=== PATIENT | male | born 1970 | race Caucasian/White ===

== ENCOUNTER → 2017-03-01 | Outpatient (CLI) | payer OTHER ==
[~2017-03-01] MED LIST: CELEBREX100 MG PO; CLINDAMYCIN HC300 MG PO; SKELAXIN800 MG PO
== END | disposition home or self-care (01) ==
LOC: LAB 08:30
DX: C73 Malignant neoplasm of thyroid gland (principal); E89.0 Postprocedural hypothyroidism

== ENCOUNTER 2017-03-15 07:30 | Outpatient (CLI) | payer OTHER | END 2017-03-15 17:00 | disposition home or self-care (01) | LOC: MRI 07:30 | DX: R10.13 Epigastric pain (principal) | CPT/HCPCS: 74183 ==

== ENCOUNTER 2017-04-21 08:06 | Outpatient (CLI) | payer OTHER | END 2017-04-21 08:21 | disposition home or self-care (01) | LOC: LAB 08:06 | DX: I10 Essential (primary) hypertension (principal); M54.5 Low back pain; E03.8 Other specified hypothyroidism; C73 Malignant neoplasm of thyroid gland ==

== ENCOUNTER 2017-04-25 14:31 | Outpatient (CLI) | payer OTHER | END 2017-04-25 14:41 | disposition home or self-care (01) | LOC: SONOGRAMA 14:31 | DX: C73 Malignant neoplasm of thyroid gland (principal); E03.9 Hypothyroidism, unspecified; I10 Essential (primary) hypertension; M54.5 Low back pain ==

== ENCOUNTER → 2017-06-12 | Outpatient (CLI) | payer OTHER | END | disposition home or self-care (01) | LOC: MRI 11:20 | DX: M54.5 Low back pain (principal); E03.8 Other specified hypothyroidism; I10 Essential (primary) hypertension; C73 Malignant neoplasm of thyroid gland | CPT/HCPCS: 72141 ==

== ENCOUNTER → 2017-06-12 | Outpatient (CLI) | payer OTHER | END | disposition home or self-care (01) | LOC: TOM 11:11 | DX: I10 Essential (primary) hypertension (principal); M54.5 Low back pain; E03.8 Other specified hypothyroidism; C73 Malignant neoplasm of thyroid gland ==

== ENCOUNTER 2017-07-07 09:34 | Outpatient (CLI) | payer OTHER | END 2017-07-07 09:35 | disposition home or self-care (01) | LOC: LAB 09:34 | DX: N39.0 Urinary tract infection, site not specified (principal) ==

== ENCOUNTER → 2017-08-04 | Outpatient (CLI) | payer OTHER | END | disposition home or self-care (01) | LOC: TOM 07:15 | DX: R10.32 Left lower quadrant pain (principal) ==

== ENCOUNTER → 2017-09-11 07:32 | Outpatient (CLI) | payer OTHER | END | disposition home or self-care (01) | LOC: LAB 07:32 | DX: R97.21 Rising PSA following treatment for malignant neoplasm of prostate (principal); B39.4 Histoplasmosis capsulati, unspecified; A31.0 Pulmonary mycobacterial infection; I73.9 Peripheral vascular disease, unspecified ==

== ENCOUNTER 2017-12-12 07:31 | Outpatient (CLI) | payer OTHER | END 2017-12-12 07:44 | disposition home or self-care (01) | LOC: LAB 07:31 | DX: C73 Malignant neoplasm of thyroid gland (principal); E89.0 Postprocedural hypothyroidism ==

== ENCOUNTER 2017-12-15 14:28 | Outpatient (CLI) | payer OTHER | END 2017-12-15 15:35 | disposition home or self-care (01) | LOC: NUCLEAR 14:28 | DX: C73 Malignant neoplasm of thyroid gland (principal) | CPT/HCPCS: 78018; A9528; 78020 ==

== ENCOUNTER 2018-02-01 10:24 | Emergency (ER) | payer OTHER ==
[~2018-02-01] VITALS: Ht 182.9 cm; Wt 95.3 kg
[2018-02-01] MEDS ORDERED: ALTACE10 MG PO (10:44)
[2018-02-01] MEDS ORDERED: LEVO-T88 MCG PO (10:44)
== END 2018-02-01 13:08 | disposition home or self-care (01) ==
LOC: ER 10:24
DX: S61.223A Laceration with foreign body of left middle finger without damage to nail, initial encounter (principal); Z77.21 Contact with and (suspected) exposure to potentially hazardous body fluids; W46.0XXA Contact with hypodermic needle, initial encounter; Y93.89 Activity, other specified; Y92.69 Other specified industrial and construction area as the place of occurrence of the external cause; Y99.8 Other external cause status

== ENCOUNTER 2018-06-04 15:00 | Outpatient (CLI) | payer OTHER ==
[~2018-06-04 15:00] MED LIST changes: +ALTACE10 MG PO; +LEVO-T88 MCG PO
== END 2018-06-04 15:19 | disposition home or self-care (01) ==
LOC: SONOGRAMA 15:00
DX: R22.1 Localized swelling, mass and lump, neck (principal)

== ENCOUNTER 2018-08-01 08:21 | Outpatient (CLI) | payer OTHER | END 2018-08-01 11:45 | disposition home or self-care (01) | LOC: LAB 08:21 | DX: C73 Malignant neoplasm of thyroid gland (principal); Z11.3 Encounter for screening for infections with a predominantly sexual mode of transmission ==

== ENCOUNTER 2018-08-13 08:27 | Outpatient (CLI) | payer OTHER | END 2018-08-13 08:31 | disposition home or self-care (01) | LOC: LAB 08:27 | DX: E03.8 Other specified hypothyroidism (principal); I10 Essential (primary) hypertension; M54.5 Low back pain; C73 Malignant neoplasm of thyroid gland ==

== ENCOUNTER → 2018-08-22 | Outpatient (CLI) | payer OTHER | END | disposition home or self-care (01) | LOC: NUCLEAR 12-18 13:00 → TOM 13:52 | DX: M54.5 Low back pain (principal); E03.8 Other specified hypothyroidism; C73 Malignant neoplasm of thyroid gland; I10 Essential (primary) hypertension ==

== ENCOUNTER 2018-12-10 07:10 | Outpatient (CLI) | payer OTHER | END 2018-12-10 07:17 | disposition home or self-care (01) | LOC: LAB 07:10 | DX: C73 Malignant neoplasm of thyroid gland (principal); E89.0 Postprocedural hypothyroidism; E03.8 Other specified hypothyroidism ==

== ENCOUNTER 2018-12-10 14:17 | Outpatient (CLI) | payer OTHER | END 2018-12-10 14:19 | disposition home or self-care (01) | LOC: SONOGRAMA 14:17 | DX: C73 Malignant neoplasm of thyroid gland (principal) ==

== ENCOUNTER → 2019-01-28 15:34 | Outpatient (CLI) | payer OTHER | END | disposition home or self-care (01) | LOC: LAB 15:34 | DX: J20.0 Acute bronchitis due to Mycoplasma pneumoniae (principal); J11.1 Influenza due to unidentified influenza virus with other respiratory manifestations ==

== ENCOUNTER → 2019-04-29 11:43 | Outpatient (CLI) | payer OTHER | END | disposition home or self-care (01) | LOC: LAB 11:43 | DX: J11.1 Influenza due to unidentified influenza virus with other respiratory manifestations (principal); R05 Cough; J06.9 Acute upper respiratory infection, unspecified ==

== ENCOUNTER 2019-06-18 08:18 | Outpatient (CLI) | payer OTHER | END 2019-06-18 08:24 | disposition home or self-care (01) | LOC: LAB 08:18 | DX: D64.89 Other specified anemias (principal); E11.9 Type 2 diabetes mellitus without complications; E78.2 Mixed hyperlipidemia; I10 Essential (primary) hypertension; E03.8 Other specified hypothyroidism ==

== ENCOUNTER 2019-12-09 09:23 | Outpatient (CLI) | payer OTHER | END 2019-12-09 09:28 | disposition home or self-care (01) | LOC: LAB 09:23 | PROVIDERS: ATTEND Internal Medicine Sports Medicine | DX: C73 Malignant neoplasm of thyroid gland (principal); E89.0 Postprocedural hypothyroidism ==

== ENCOUNTER 2019-12-17 08:00 | Outpatient (CLI) | payer OTHER | END 2019-12-17 15:00 | disposition home or self-care (01) | LOC: PPH VACUNA 08:00 | DX: Z23 Encounter for immunization (principal) ==

== ENCOUNTER → 2019-12-17 08:24 | Outpatient (CLI) | payer OTHER | END | disposition home or self-care (01) | LOC: SONOGRAMA 12-16 14:40 | PROVIDERS: ATTEND Internal Medicine Sports Medicine | DX: C73 Malignant neoplasm of thyroid gland (principal) ==

== ENCOUNTER 2020-03-10 15:52 | Outpatient (CLI) | payer OTHER | END 2020-03-10 18:00 | disposition home or self-care (01) | LOC: PPH VACUNA 15:52 | DX: Z23 Encounter for immunization (principal) ==

== ENCOUNTER → 2020-11-05 08:50 | Outpatient (CLI) | payer OTHER | END | disposition home or self-care (01) | LOC: LAB 08:50 | PROVIDERS: ATTEND Emergency Medicine Pediatric Emergency Medicine | DX: I10 Essential (primary) hypertension (principal); M54.5 Low back pain; E03.8 Other specified hypothyroidism; C73 Malignant neoplasm of thyroid gland; Z12.11 Encounter for screening for malignant neoplasm of colon ==

== ENCOUNTER 2020-12-23 08:00 | Outpatient (CLI) | payer OTHER | END 2020-12-23 08:30 | disposition home or self-care (01) | LOC: PPH VACUNA 08:00 | PROVIDERS: ATTEND Emergency Medicine Pediatric Emergency Medicine | DX: Z23 Encounter for immunization (principal) ==

== ENCOUNTER 2020-12-29 08:00 | Outpatient (CLI) | payer OTHER | END 2020-12-29 08:30 | disposition home or self-care (01) | LOC: PPH VACUNA 08:00 | PROVIDERS: ATTEND Emergency Medicine Pediatric Emergency Medicine | DX: Z23 Encounter for immunization (principal) ==

== ENCOUNTER 2021-01-30 12:06 | Outpatient (CLI) | payer OTHER | END 2021-01-30 12:25 | disposition home or self-care (01) | LOC: LAB 12:06 | PROVIDERS: ATTEND Emergency Medicine Pediatric Emergency Medicine | DX: Z03.818 Encounter for observation for suspected exposure to other biological agents ruled out (principal) ==

== ENCOUNTER 2021-03-24 15:35 | Outpatient (CLI) | payer OTHER | END 2021-03-24 15:38 | disposition home or self-care (01) | LOC: LAB 15:35 | PROVIDERS: ATTEND Preventive Medicine Occupational Medicine | DX: U07.1 COVID-19 (principal) ==

== ENCOUNTER 2021-11-24 08:40 | Outpatient (CLI) | payer OTHER | END 2021-11-24 08:45 | disposition home or self-care (01) | LOC: PPH VACUNA 08:40 | PROVIDERS: ATTEND Emergency Medicine Pediatric Emergency Medicine | DX: Z23 Encounter for immunization (principal) ==

== ENCOUNTER 2022-10-27 11:05 | Outpatient (CLI) | payer OTHER | END 2022-10-27 11:09 | disposition home or self-care (01) | LOC: SONOGRAMA 11:05 | PROVIDERS: ATTEND Internal Medicine Sports Medicine | DX: C73 Malignant neoplasm of thyroid gland (principal); E89.0 Postprocedural hypothyroidism ==

== ENCOUNTER 2024-07-25 08:53 | Outpatient (CLI) | payer OTHER | END 2024-07-25 09:01 | disposition home or self-care (01) | LOC: SONOGRAMA 08:53 | PROVIDERS: ATTEND Urology | DX: N40.0 Benign prostatic hyperplasia without lower urinary tract symptoms (principal); R31.1 Benign essential microscopic hematuria ==

== ENCOUNTER 2024-11-28 09:53 | Outpatient (CLI) | payer OTHER | END 2024-11-28 10:06 | disposition home or self-care (01) | LOC: SONOGRAMA 09:53 | PROVIDERS: ATTEND Internal Medicine Sports Medicine | DX: C73 Malignant neoplasm of thyroid gland (principal) ==